=== PATIENT | male | born 1950 | race Caucasian/White ===

== ENCOUNTER 2022-11-23 08:00 | Outpatient (CLI) | payer MEDICARE ==
[2022-11-23 17:48] LABS: BASOPHILS % (AUTO) 0.5 %; EOSINOPHILS # (AUTO) 0.2 10^3/uL (0.0-0.7); EOSINOPHILS % (AUTO) 3.9 %; HGB - HEMOGLOBIN 14.1 g/dL (14.0-18.0); LYMPHOCYTES # (AUTO) 1.4 10^3/uL (1.5-3.5); LYMPHOCYTES % (AUTO) 23.3 %; MEAN CORPUSCULAR HEMOGLOBIN 30.4 pg (27.0-31.0); MEAN CORPUSCULAR VOLUME 94.8 fL (80.0-94.0); MEAN PLATELET VOLUME 11.2 fL (7.4-11.4); MONOCYTES # (AUTO) 0.6 10^3/uL (0.0-1.0); MONOCYTES % (AUTO) 10.6 %; NEUTROPHILS # (AUTO) 3.6 10^3/uL (1.5-6.6); NEUTROPHILS % (AUTO) 61.4 %; PLT - PLATELET COUNT 175 10^3/uL (130-450); RED BLOOD COUNT 4.64 10^6/uL (4.70-6.10); RED CELL DISTRIBUTION WIDTH 12.6 % (12.0-15.0); WHITE BLOOD COUNT 5.8 x10^3/uL (4.8-10.8)
[2022-11-23 18:29] LABS: ALBUMIN 4.2 g/dL (3.2-5.5); ALBUMIN/GLOBULIN RATIO 1.4 (1.0-2.2); BILIRUBIN,TOTAL 0.8 mg/dL (0.2-1.0); CALCIUM 9.3 mg/dL (8.5-10.3); CREATININE 0.6 mg/dL (0.6-1.2); POTASSIUM 4.2 mmol/L (3.5-5.0); TOTAL PROTEIN 7.3 g/dL (6.7-8.2)
== END 2022-11-23 23:59 | disposition home or self-care (01) ==
LOC: LAB.N 08:00
PROVIDERS: ATTEND Nurse Practitioner
DX: R22.43 Localized swelling, mass and lump, lower limb, bilateral (principal)
CPT/HCPCS: 36415; 80053; 83880; 85025

== ENCOUNTER 2023-01-25 11:30 | Outpatient (CLI) | payer MEDICARE ==
[2023-01-25 17:46] LABS: CALCIUM 9.1 mg/dL (8.5-10.3); CREATININE 0.7 mg/dL (0.6-1.2)
[2023-01-25 18:12] LABS: BASOPHILS % (AUTO) 0.4 %; EOSINOPHILS # (AUTO) 0.3 10^3/uL (0.0-0.7); EOSINOPHILS % (AUTO) 3.7 %; HCT - HEMATOCRIT 39.8 % (42.0-52.0); HGB - HEMOGLOBIN 13.4 g/dL (14.0-18.0); LYMPHOCYTES # (AUTO) 1.5 10^3/uL (1.5-3.5); LYMPHOCYTES % (AUTO) 20.8 %; MEAN CORPUSCULAR HGB CONC 33.7 g/dL (32.0-36.0); MEAN CORPUSCULAR VOLUME 92.1 fL (80.0-94.0); MEAN PLATELET VOLUME 11.8 fL (7.4-11.4); MONOCYTES # (AUTO) 0.7 10^3/uL (0.0-1.0); MONOCYTES % (AUTO) 10.5 %; NEUTROPHILS # (AUTO) 4.5 10^3/uL (1.5-6.6); NEUTROPHILS % (AUTO) 64.5 %; PLT - PLATELET COUNT 160 10^3/uL (130-450); RED BLOOD COUNT 4.32 10^6/uL (4.70-6.10); RED CELL DISTRIBUTION WIDTH 12.6 % (12.0-15.0)
== END 2023-01-25 11:45 | disposition home or self-care (01) ==
LOC: LAB.N 11:30
PROVIDERS: ATTEND Physician Assistant
DX: R22.43 Localized swelling, mass and lump, lower limb, bilateral (principal)
CPT/HCPCS: 36415; 80048; 83880; 85025

== ENCOUNTER 2023-01-26 13:54 | Outpatient (CLI) | payer MEDICARE ==
--- NOTE | 2023-01-26 14:46 | XRAY Report ---
PROCEDURE: Chest 2 View X-Ray INDICATIONS: LOCALIZED SWELLING ON FEET,BILATERAL TECHNIQUE: 2 views of the chest were acquired. COMPARISON: None. FINDINGS: Surgical changes and devices: None. Lungs and pleura: Diffuse interstitial prominence. Mild central vascular congestion. No focal consol idation. No substantial pleural effusion. No pneumothorax. Mediastinum: Mediastinal contours appear within normal limits. Heart size is mildly enlarged. Bones and chest wall: No suspicious bony lesions. Overlying soft tissues appear unremarkable. IMPRESSION: Mild cardiomegaly with findings suggestive of early pulmonary edema/CHF. A concurrent infectious or i nflammatory process not excluded if clinically appropriate. No focal consolidation seen. Reviewed by: Teddy Otoole MD on 01/26/2023 2:44 PM PDT Approved by: Teddy Otoole MD on 01/26/2023 2:44 PM PDT Station ID: [id number]
== END 2023-01-26 13:55 | disposition home or self-care (01) ==
LOC: DI 13:54
PROVIDERS: ATTEND Physician Assistant
DX: R22.43 Localized swelling, mass and lump, lower limb, bilateral (principal); I51.7 Cardiomegaly

== ENCOUNTER 2023-02-12 12:09 | Outpatient (CLI) | payer MEDICARE ==
[2023-02-12 12:27] LABS: BASOPHILS % (AUTO) 0.5 %; EOSINOPHILS # (AUTO) 0.1 10^3/uL (0.0-0.7); EOSINOPHILS % (AUTO) 1.8 %; HCT - HEMATOCRIT 41.3 % (42.0-52.0); LYMPHOCYTES # (AUTO) 1.5 10^3/uL (1.5-3.5); LYMPHOCYTES % (AUTO) 19.2 %; MEAN CORPUSCULAR HEMOGLOBIN 30.8 pg (27.0-31.0); MEAN CORPUSCULAR HGB CONC 33.9 g/dL (32.0-36.0); MEAN PLATELET VOLUME 10.7 fL (7.4-11.4); MONOCYTES # (AUTO) 0.7 10^3/uL (0.0-1.0); MONOCYTES % (AUTO) 9.1 %; NEUTROPHILS # (AUTO) 5.3 10^3/uL (1.5-6.6); NEUTROPHILS % (AUTO) 69.1 %; PLT - PLATELET COUNT 165 10^3/uL (130-450); RED BLOOD COUNT 4.54 10^6/uL (4.70-6.10); RED CELL DISTRIBUTION WIDTH 12.5 % (12.0-15.0); WHITE BLOOD COUNT 7.7 x10^3/uL (4.8-10.8)
[2023-02-12 12:47] LABS: ALBUMIN/GLOBULIN RATIO 1.3 (1.0-2.2); ALKALINE PHOSPHATASE 37 IU/L (42-121); ALT ALANINE AMINOTRANSFERASE 21 IU/L (10-60); AST ASPARTATE AMINOTRANSFERASE 17 IU/L (10-42); BILIRUBIN,TOTAL 0.8 mg/dL (0.2-1.0); BUN - BLOOD UREA NITROGEN 15 mg/dL (6-20); CARBON DIOXIDE - CO2 25 mmol/L (21-32); CHLORIDE 108 mmol/L (101-111); CHOL/HDL RATIO 2.9 (<5.0); CHOLESTEROL 133 mg/dL; CREATININE 0.8 mg/dL (0.6-1.2); GFR - MDRD 96 (>89); GLUCOSE 103 mg/dL (70-100); HDL CHOLESTEROL 46 mg/dL; LDL CHOLESTEROL,CALCULATED 69 mg/dL; LDL/HDL RATIO 1.5 (<3.6); POTASSIUM 3.9 mmol/L (3.5-5.0); SODIUM 138 mmol/L (135-145); TRIGLYCERIDES 90 mg/dL; VLDL CHOLESTEROL 18 mg/dL
[2023-02-12 12:57] LABS: THYROID STIMULATING HORMONE 3.71 uIU/mL (0.34-5.60)
== END 2023-02-12 12:10 | disposition home or self-care (01) ==
LOC: LAB 12:09
PROVIDERS: ATTEND Physician Assistant
DX: R06.09 Other forms of dyspnea (principal); I25.10 Atherosclerotic heart disease of native coronary artery without angina pectoris; N40.1 Benign prostatic hyperplasia with lower urinary tract symptoms; E03.9 Hypothyroidism, unspecified
CPT/HCPCS: 36415; 80053; 80061; 83721; 84153; 84443; 85025

== ENCOUNTER 2023-04-06 08:43 | Outpatient (CLI) | payer MEDICARE ==
--- NOTE | 2023-04-06 09:43 | Sleep Patient Instructions ---
Sleep Center Visit Summary - Patient Visit Information Reason for Visit: Initial consult for PAP therapy - Patient Instructions Additional Instructions: You will continue with CPAP therapy with pressure set at 17-20 cmH2O. A supply prescription will be updated with a transfer to new CPAP supply company. We encourage you to continue to try to lose weight. Please follow up with the sleep care office in 1 year. - Clinic Information Contact: [facility] [address] [place] [id number] [email or web address] T: [phone]
--- NOTE | 2023-04-06 09:51 | SLEEP CARE CONSULTATION ---
Information from patient questionnaire entered by Geraldine Heredia. I have reviewed and concur with the information entered by Geraldine Heredia. This document represents the service I personally performed and the decisions made by me, Leonor Francisco ARNP. History of Present Illness Service Date and Time: 04/06/2023 0843 Reason for Visit: New patient, sleep apnea on CPAP therapy Chief Complaint: reports: Excessive daytime sleepiness, Fatigue, Other (all of above) Date of Onset: 2 years Usual bedtime: 11 PM Time it takes to fall asleep: 20 minutes Snores at night: Yes Observed to quit breathing while asleep: Yes Sleeps alone due to snoring: No Number of times waking at night: 2 Reasons for waking at night: reports: Bathroom Toss, Turn, or Twitch while sleeping: Yes Recalls having dreams: No Usually gets out of bed at: 6-7 AM Feels refreshed in the morning: No Morning headache: No Sleepy or fatigued during the day: Yes Ever fallen asleep while driving: No Takes day naps: Yes Dreams during day naps: No Prior sleep studies: Yes Year and Where: [facility] Additional HPI information: LEIGHTON CROCKETT was previously diagnosed to have severe, AHI 48.2, obstructive sleep apnea-hypopnea syndrome as seen in sleep study dated 04/03/2019 through [facility] in [facility] and comes in today to establish care for CPAP therapy. - Parasomnia Symptoms Ever been unable to move upon waking from sleep: No Walks in sleep: No Talks in sleep: No Ever acted out dreams in sleep: No Ever felt weak in the knees when startled or emotional: No Bothered by creepy, crawly, restless sensations in legs: No Problems with memory or concentration: No CPAP Compliance Data - Data Reviewed with Patient Average duration of nightly device use: 5 hours 11 mins Compliance rate %: 76.7 (90/90 days used) Current pressure setting (cmH2O): 17-20 Humidity settin Heated hose setting: off Average residual AHI: 3.2 Average large leak: 0 secs Compliance data discussion: He has a Dreamstation 2 that was a replacement with the recall by [email or web address]. Setup for original machine was 04/16/2019. He is using a full face mask, F20 Airtouch. He has not been getting supplies. Subjective Patient concerns: reports: air blowing in eyes, mask leak noise, dry mouth, nose, throat. denies: aerophagia, mask discomfort, condensation in mask/hose, nasal congestion, epistaxis Observed to snore while using device: No Current pressure setting perceived as: too high On therapy, patient: reports: sleeping better, awakening more refreshed, being more awake and alert during the day, more rested overall. denies: drowsiness while driving Initial [place] Sleepiness Scale score: 16 (04/06/2023) Past Medical History Past Medical History: reports: Congestive Heart Failure, Hypothyroidism Social History The patient's occupation is a RETIRED. Patient is and lives in . Have you smoked in the past 12 months: No Alcohol use: No Caffeine use: Yes Caffeine amount and frequency: 1-2 cups coffee daily Family History Family history of sleep disordered breathing: No Allergies and Home Medications Known drug allergies: No Drug allergies reviewed: Yes Home medication list reviewed: Yes (see updated list in EMR) Review of Systems Weight gain over past 5 years: 60 Cardiovascular: denies: high blood pressure Respiratory: reports: sputum production Gastrointestinal: denies: heartburn Neurological: denies: headaches Psychiatric: denies: anxiety, depression Ear/Nose/Throat: reports: injury to nose (twice) Endocrine: reports: thyroid disease Immunologic: reports: sneezing, rash Physical Exam Vital signs obtained and entered by: GERALDINE Davila MA Blood Pressure: 126/74 (LEFT ARM) Cuff size: long Heart Rate: 62 O2 Saturation: 96 Height: 6 ft Weight: 312 lb 9.6 oz Body Mass Index: 42.4 BMI Classification: Morbidly Obese Neck circumference: 18.75 Heart: regular rate and rhythm Lungs: clear bilaterally Impression and Plan 1. Obstructive Sleep Apnea-Hypopnea Syndrome, severe, with good treatment compliance and good apnea control. On CPAP therapy, the patient has better sleep quality and is more rested overall. Patient states he wears the mask every night but the pressure seems too high and will wake him up with leaking noises. He states he may not change the mask cushion as often as he should. I advised him to change the mask cushion out monthly to get the best seal. He states he is never been fitted to the mask and is not sure that it is fitting properly. He also would like to have a different mask if possible but needs a full face because he cannot breathe through one side of his nose.I fitted him to an Clau view, medium cushion, full face mask and he found it comfortable. I also advised that he try a [employer]-com adaptor that can reduce the feeling of the higher pressure but still give him optimal pressure for apnea control. He is in need of a local CPAP supply company. I will have my prevention coordinator inform of DME options. A DWO prescription will then be made. Patient advised to contact this office if further supply problems. Patient's apnea severity and rationale for treatment to reduce apnea, improve sleep quality and reduce cardiovascular and cerebrovascular events was reviewed. I also reviewed the benefit of consistent device use of CPAP for cardiac disease (CHF). 2. Obesity, unspecified. Currently patients BMI is 42.4. Obesity increases the risk of apnea, CPAP pressure requirements and overall health risks especially cardiovascular and diabetes. Thus patient is advised to lose weight. * Continue auto CPAP pressure at 17-20 cmH2O * [employer] * Update supply prescription * Notify me if snoring with mask or feeling that the pressure is too much or too little * Attempt to lose weight * Call this office if any problems using CPAP * Return for follow up in 1 year, or sooner if concerns arise Mask provided: Yes Counseling Topics: Weight loss health impact Prescriptions: Device supplies Follow up with Sleep Care in: 1 year Visit Type: In Office Time Spent with Patient (minutes): 44 Provider Statement: I spent 100% of the Face to Face Visit with the patient with greater than 50% spent counseling the patient and coordination of care.
[2023-04-06 09:53] VITALS: BP 126/74
== END 2023-04-06 08:44 | disposition home or self-care (01) ==
LOC: SC 08:43
PROVIDERS: ATTEND Nurse Practitioner Family
DX: G47.33 Obstructive sleep apnea (adult) (pediatric) (principal); E66.01 Morbid (severe) obesity due to excess calories; Z68.41 Body mass index [BMI] 40.0-44.9, adult
CPT/HCPCS: 99203; G0463; 99212

== ENCOUNTER 2023-07-01 08:00 | Outpatient (CLI) | payer MEDICARE | END 2023-07-01 23:59 | disposition home or self-care (01) | LOC: LAB.WCP 08:00 | PROVIDERS: ATTEND Physician Assistant | DX: I48.0 Paroxysmal atrial fibrillation (principal); Z79.01 Long term (current) use of anticoagulants ==

== ENCOUNTER 2023-07-04 08:00 | Outpatient (CLI) | payer MEDICARE | END 2023-07-04 23:59 | disposition home or self-care (01) | LOC: LAB.WCP 08:00 | PROVIDERS: ATTEND Physician Assistant | DX: Z79.01 Long term (current) use of anticoagulants (principal); I48.0 Paroxysmal atrial fibrillation ==

== ENCOUNTER 2023-07-11 08:00 | Outpatient (CLI) | payer MEDICARE | END 2023-07-11 08:01 | disposition home or self-care (01) | LOC: LAB.N 08:00 | PROVIDERS: ATTEND Physician Assistant | DX: Z79.01 Long term (current) use of anticoagulants (principal); I48.0 Paroxysmal atrial fibrillation ==

== ENCOUNTER 2023-07-20 08:00 | Outpatient (CLI) | payer MEDICARE | END 2023-07-20 23:59 | disposition home or self-care (01) | LOC: LAB.WCP 08:00 | PROVIDERS: ATTEND Physician Assistant | DX: Z79.01 Long term (current) use of anticoagulants (principal); I48.0 Paroxysmal atrial fibrillation ==

== ENCOUNTER 2023-08-03 08:00 | Outpatient (CLI) | payer MEDICARE | END 2023-08-03 23:59 | disposition home or self-care (01) | LOC: LAB.WCP 08:00 | PROVIDERS: ATTEND Physician Assistant | DX: Z79.01 Long term (current) use of anticoagulants (principal); I48.0 Paroxysmal atrial fibrillation ==

== ENCOUNTER 2023-08-17 08:00 | Outpatient (CLI) | payer MEDICARE | END 2023-08-17 23:59 | disposition home or self-care (01) | LOC: LAB.N 08:00 | PROVIDERS: ATTEND Physician Assistant | DX: Z79.01 Long term (current) use of anticoagulants (principal); I48.0 Paroxysmal atrial fibrillation ==

== ENCOUNTER → 2023-09-14 | Outpatient (CLI) | payer MEDICARE | LOC: LAB.WCP 08:00 | PROVIDERS: ATTEND Physician Assistant | DX: I48.0 Paroxysmal atrial fibrillation (principal); Z79.01 Long term (current) use of anticoagulants ==

== ENCOUNTER 2023-10-19 08:00 | Outpatient (CLI) | payer MEDICARE | END 2023-10-19 08:01 | disposition home or self-care (01) | LOC: LAB.WCP 08:00 | PROVIDERS: ATTEND Physician Assistant | DX: I48.0 Paroxysmal atrial fibrillation (principal); Z79.01 Long term (current) use of anticoagulants ==

== ENCOUNTER → 2023-11-02 | Outpatient (CLI) | payer MEDICARE | LOC: LAB.N 08:00 | PROVIDERS: ATTEND Physician Assistant | DX: I48.0 Paroxysmal atrial fibrillation (principal); Z79.01 Long term (current) use of anticoagulants ==

== ENCOUNTER → 2023-11-16 | Outpatient (CLI) | payer MEDICARE | LOC: LAB.N 08:00 | PROVIDERS: ATTEND Physician Assistant | DX: I48.0 Paroxysmal atrial fibrillation (principal); Z79.01 Long term (current) use of anticoagulants ==

== ENCOUNTER 2023-12-10 10:01 | Outpatient (CLI) | payer MEDICARE ==
[2023-12-10 12:04] LABS: BASOPHILS % (AUTO) 0.6 %; EOSINOPHILS # (AUTO) 0.2 10^3/uL (0.0-0.7); EOSINOPHILS % (AUTO) 4.2 %; HCT - HEMATOCRIT 40.4 % (42.0-52.0); HGB - HEMOGLOBIN 13.5 g/dL (14.0-18.0); LYMPHOCYTES # (AUTO) 1.6 10^3/uL (1.5-3.5); LYMPHOCYTES % (AUTO) 29.8 %; MEAN CORPUSCULAR HEMOGLOBIN 30.5 pg (27.0-31.0); MEAN CORPUSCULAR HGB CONC 33.4 g/dL (32.0-36.0); MEAN CORPUSCULAR VOLUME 91.2 fL (80.0-94.0); MEAN PLATELET VOLUME 11.2 fL (7.4-11.4); MONOCYTES # (AUTO) 0.5 10^3/uL (0.0-1.0); MONOCYTES % (AUTO) 10.3 %; NEUTROPHILS # (AUTO) 2.9 10^3/uL (1.5-6.6); NEUTROPHILS % (AUTO) 54.9 %; PLT - PLATELET COUNT 153 10^3/uL (130-450); RED BLOOD COUNT 4.43 10^6/uL (4.70-6.10); RED CELL DISTRIBUTION WIDTH 13.2 % (12.0-15.0); WHITE BLOOD COUNT 5.2 x10^3/uL (4.8-10.8)
[2023-12-10 12:18] LABS: ALBUMIN 4.1 g/dL (3.2-5.5); ALBUMIN/GLOBULIN RATIO 1.5 (1.0-2.2); ALKALINE PHOSPHATASE 37 IU/L (42-121); ALT ALANINE AMINOTRANSFERASE 15 IU/L (10-60); AST ASPARTATE AMINOTRANSFERASE 14 IU/L (10-42); BILIRUBIN,TOTAL 0.5 mg/dL (0.2-1.0); BUN - BLOOD UREA NITROGEN 20 mg/dL (6-20); CALCIUM 9.3 mg/dL (8.5-10.3); CARBON DIOXIDE - CO2 26 mmol/L (21-32); CHLORIDE 108 mmol/L (101-111); CHOLESTEROL 130 mg/dL; CREATININE 0.8 mg/dL (0.6-1.3); GFR - MDRD 95 (>89); GLUCOSE 107 mg/dL (74-104); HDL CHOLESTEROL 44 mg/dL; LDL CHOLESTEROL,CALCULATED 60 mg/dL; LDL/HDL RATIO 1.4 (<3.6); POTASSIUM 3.9 mmol/L (3.5-4.5); SODIUM 137 mmol/L (135-145); TOTAL PROTEIN 6.8 g/dL (6.4-8.9); TRIGLYCERIDES 132 mg/dL (48-352); VLDL CHOLESTEROL 26 mg/dL
[2023-12-10 12:34] LABS: THYROID STIMULATING HORMONE 5.87 uIU/mL (0.34-5.60)
== END 2023-12-10 10:02 | disposition home or self-care (01) ==
LOC: LAB.N 10:01
PROVIDERS: ATTEND Physician Assistant
DX: I48.0 Paroxysmal atrial fibrillation (principal); I25.10 Atherosclerotic heart disease of native coronary artery without angina pectoris; Z12.5 Encounter for screening for malignant neoplasm of prostate; E03.9 Hypothyroidism, unspecified
CPT/HCPCS: 36415; 80053; 80061; 84439; 84443; 85025; G0103; 83721; 84153

== ENCOUNTER 2023-12-28 08:00 | Outpatient (CLI) | payer MEDICARE | END 2023-12-28 08:01 | disposition home or self-care (01) | LOC: LAB.WCP 08:00 | PROVIDERS: ATTEND Physician Assistant | DX: Z79.01 Long term (current) use of anticoagulants (principal); I48.0 Paroxysmal atrial fibrillation ==

== ENCOUNTER → 2024-01-25 | Outpatient (CLI) | payer MEDICARE | LOC: LAB.WCP 08:00 | PROVIDERS: ATTEND Physician Assistant | DX: Z79.01 Long term (current) use of anticoagulants (principal); I48.0 Paroxysmal atrial fibrillation ==

== ENCOUNTER 2024-03-03 08:00 | Outpatient (CLI) | payer MEDICARE | END 2024-03-03 23:59 | disposition home or self-care (01) | LOC: LAB.WCP 08:00 | PROVIDERS: ATTEND Physician Assistant | DX: I48.0 Paroxysmal atrial fibrillation (principal); Z79.01 Long term (current) use of anticoagulants ==

== ENCOUNTER 2024-04-04 08:00 | Outpatient (CLI) | payer MEDICARE | END 2024-04-04 23:59 | disposition home or self-care (01) | LOC: LAB.WCP 08:00 | PROVIDERS: ATTEND Internal Medicine | DX: I48.0 Paroxysmal atrial fibrillation (principal); Z79.01 Long term (current) use of anticoagulants ==

== ENCOUNTER 2024-04-17 13:00 | Outpatient (CLI) | payer MEDICARE ==
--- NOTE | 2024-04-17 13:43 | Sleep Patient Instructions ---
Sleep Center Visit Summary - Patient Visit Information Reason for Visit: Annual follow-up - Patient Instructions Additional Instructions: You will continue with CPAP therapy with pressure set at 17-20 cmH2O. A supply prescription will be updated with your DME. We encourage you to continue to try to lose weight. Please follow up with the sleep care office in 1 year. - Clinic Information Contact: [facility] [address] [place] [address] [email or web address] T: [phone]
--- NOTE | 2024-04-17 13:47 | SLEEP CARE CONSULTATION ---
Information from patient questionnaire entered by Geraldine Heredia. I have reviewed and concur with the information entered by Geraldine Heredia. This document represents the service I personally performed and the decisions made by , Leonor Francisco ARNP. History of Present Illness Service Date and Time: 04/17/2024 1300 Previous diagnosis: Severe, Obstructive Sleep Apnea-Hypopnea Syndrome AHI: 48.2 (on 04/03/2019) Reason for follow up: annual (LAST SEEN 03/2023) Equipment type: CPAP ([employer] Dreamstation 2) Equipment obtained from: Other ([facility]; getting supplies) Mask style: Full face Backup mask available: Yes Last cushion change: 3 weeks Prior sleep studies: Yes Year and Where: [facility] additional information: LEIGHTON CROCKETT was diagnosed to have severe, AHI 48.2, obstructive sleep apnea- hypopnea syndrome and returned today for CPAP therapy annual follow-up. Sleep Study - Results Prior sleep studies: Yes Year and Where: [facility] CPAP Compliance Data - Data Reviewed with Patient Average duration of nightly device use: 7 HRS 43 MINS 49 SECS Compliance rate %: 100 (10/20/23-04/16/24; 180/180 days used) Current pressure setting (cmH2O): 17-20 Average residual AHI: 2.7 Central apnea: 0.7 Obstructive apnea: 0.9 Hypopnea: 1.1 Average large leak: 0 secs Subjective Patient concerns: reports: dry mouth, nose, throat (dry mouth). denies: aerophagia, mask discomfort, air blowing in eyes, mask leak noise, condensation in mask/hose, nasal congestion, epistaxis Observed to snore while using device: No Current pressure setting perceived as: comfortable On therapy, patient: reports: sleeping better, awakening more refreshed, being more awake and alert during the day, more rested overall. denies: drowsiness while driving Initial [place] Sleepiness Scale score: 16 (04/06/2023) Current [place] Sleepiness Scale score: 6 (04/17/24) Allergies and Home Medications Known drug allergies: No Drug allergies reviewed: Yes Home medication list reviewed: Yes (no changes) Allergy and home medication list: Allergies No Known Drug Allergies Allergy (Verified 04/17/24 13:01) Review of Systems Review of systems same as previous: No (FAINTING) Physical Exam Vital signs obtained and entered by: GERALDINE Davila MA Blood Pressure: 134/79 (RIGHT ARM) Cuff size: long Heart Rate: 36 O2 Saturation: 96 Height: 6 ft Weight: 325 lb 12.8 oz Body Mass Index: 44.1 BMI Classification: Morbidly Obese Impression and Plan 1. Obstructive Sleep Apnea-Hypopnea Syndrome, severe, with good treatment compliance and good apnea control. On CPAP therapy, the patient has better sleep quality and is more rested overall. He has significant improvement of his sleep apnea and is satisfied with current CPAP therapy. He does have a very dry mouth and states he has been trying Biotene which helps transiently. He is also increased his humidity all the way up with no improvement of his dry mouth. I suggested he try XyliMelts to see if that will help reduce mouth dryness. He voiced understanding. Patient's apnea severity and rationale for treatment to reduce apnea, improve sleep quality and reduce cardiovascular and cerebrovascular events was reviewed. I also reviewed the benefit of consistent device use of CPAP for cardiac disease (CHF). 2. Obesity, unspecified. Currently patients BMI is 44.1. Obesity increases the risk of apnea, CPAP pressure requirements and overall health risks especially cardiovascular and diabetes. Thus patient is advised to lose weight. 3. Bradycardia. He had a low heart rate of 36 in the office today. He has a history of CHF and is on Carvedilol. He is to follow up with [place] operator. * Continue auto CPAP pressure at 17-20 cmH2O * Follow up with [place] operator for low heart rate * Update supply prescription * Notify me if snoring with mask or feeling that the pressure is too much or too little * Attempt to lose weight * Call this office if any problems using CPAP * Return for follow up in 12 months, or sooner if concerns arise Counseling Topics: Spare mask, Weight loss health impact Prescriptions: Device supplies Follow up with Sleep Care in: 1 year Visit Type: In Office Time Spent with Patient (minutes): 23 Provider Statement: I spent 100% of the Face to Face Visit with the patient with greater than 50% spent counseling the patient and coordination of care.
[2024-04-17 14:10] VITALS: BP 134/79; O2SAT 96
== END 2024-04-17 13:01 | disposition home or self-care (01) ==
LOC: SC 13:00
PROVIDERS: ATTEND Nurse Practitioner Family
DX: G47.33 Obstructive sleep apnea (adult) (pediatric) (principal); E66.01 Morbid (severe) obesity due to excess calories; Z68.41 Body mass index [BMI] 40.0-44.9, adult; R00.1 Bradycardia, unspecified; Z79.899 Other long term (current) drug therapy
CPT/HCPCS: 99213; G0463; 99212

== ENCOUNTER 2024-06-04 13:49 | Emergency (ER) | payer MEDICARE ==
[2024-06-04] MEDS ORDERED: iohexoL-300 100 ML VIAL ONE (14:21)
--- NOTE | 2024-06-04 14:56 | ED Physician Documentation ---
History of Present Illness - Stated complaint Stated Complaint: LT EYE VISION LOSS - Chief complaint Chief Complaint: Neuro - Additonal information Additional information: 73-year-old male with history of CT, high cholesterol, obesity, macular degeneration of both eyes presents emergency department as he was sent here from the retina specialist. Patient had an appointment with his retina specialist where he informed him that he had some peripheral vision loss of the left peripheral vision. They told him that he had an ocular stroke at the retina specialist and they wanted him to come to the emergency department for reevaluation and imaging. He has no neurological deficits no weakness in one- sided body no recent fevers or chills no nausea or vomiting.He is anticoagulated on Coumadin and says that he goes to Coumadin clinic every 3 weeks and has not missed any recent doses. He unfortunately has not been able to afford Eliquis which is the original medication that he was supposed to be on. PD PAST MEDICAL HISTORY - Past Medical History Past Medical History: Yes Cardiovascular: High cholesterol, Coronary artery disease, CT Respiratory: Sleep apnea, CPAP use Endocrine/Autoimmune: HyPOthyroidism GI: None : Benign prostate hypertrophy Psych: None Musculoskeletal: Osteoarthritis, Chronic back pain Derm: Eczema - Past Surgical History Past Surgical History: Yes General: Cholecystectomy Ortho: Carpal Tunnel surgery - Present Medications Home Medications: Ambulatory Orders Medication Instructions Recorded Confirmed Aspirin [Vazalore] 81 mg PO DAILY 04/06/23 06/04/24 Furosemide [Lasix] 20 mg PO DAILY 04/06/23 06/04/24 Levothyroxine [Synthroid] 88 mcg PO DAILY 04/06/23 06/04/24 Rosuvastatin Calcium [Crestor] 40 mg PO DAILY PM 04/06/23 06/04/24 Vit A/Vit C/Vit E/Zinc/Copper PO DAILY 04/06/23 04/17/24 [Preservision Areds Softgel] carvediloL [Coreg] 12.5 mg PO BID 04/06/23 06/04/24 Apixaban [Eliquis] 5 mg PO BID 30 Days #60 tab 06/04/24 Rosuvastatin Calcium 20 mg PO DAILY 30 Days #30 tab 06/04/24 - Allergies Allergies/Adverse Reactions: Allergies Allergy/AdvReac Type Severity Reaction Status Date / Time No Known Drug Allergies Allergy Verified 06/04/24 13:57 - Social History Does the pt smoke?: No Smoking Status: Former smoker Does the pt drink ETOH?: No Does the pt have substance abuse?: No - Immunizations Immunizations are current?: Yes - POLST Patient has POLST: No PD ED PE NORMAL - Vitals Vital signs reviewed: Yes - General General: Alert and oriented X 3, No acute distress, Well developed/nourished - HEENT HEENT: Atraumatic, PERRL, EOMI, Moist mucous membranes - Neck Neck: No bony TTP, C-Spine cleared by NEXUS criteria - Cardiac Cardiac: RRR, No murmur - Respiratory Respiratory: No respiratory distress, Clear bilaterally - Extremities Extremities: No edema - Neuro Neuro: Alert and oriented X 3, deli associate 2-12 intact, No motor deficit, No sensory deficit, Normal speech, Other (loss of left peripheral vision) Eye Opening: Spontaneous Motor: Obeys Commands Verbal: Oriented GCS Score: 15 - Psych Psych: Normal mood, Normal affect Results - Vitals Vitals: Vital Signs - 24 hr 06/04/24 06/04/24 06/04/24 13:57 16:06 18:00 Temperature 36.3 C L Heart Rate 104 H 64 63 Respiratory 18 20 20 Rate Blood Pressure 147/90 H 140/72 H 134/95 H O2 Saturation 97 98 97 06/04/24 20:00 Temperature 36.5 C Heart Rate 65 Respiratory 16 Rate Blood Pressure 124/66 O2 Saturation 98 Oxygen O2 Source Room air - EKG (time done) 1423 EKG releavant findings:: EKG personally interpreted by author of this note. Relevant findings are: Rate: Rate (enter#) (87) Rhythm: Atrial fibrillation [place]: Normal Ischemia: Other (Borderline T wave abnormalities) Computer interpretation: Agree with computer - Labs Labs: Laboratory Tests 06/04/24 06/04/24 06/04/24 15:21 15:21 15:35 WBC 6.6 RBC 4.66 L Hgb 14.6 Hct 43.2 MCV 92.7 MCH 31.3 H MCHC 33.8 RDW 12.9 Plt Count 164 MPV 10.6 Neut # (Auto) 4.0 Lymph # (Auto) 1.6 Mcpherson # (Auto) 0.7 Eos # (Auto) 0.3 Baso # (Auto) 0.0 Absolute Nucleated RBC 0.00 Nucleated RBC % 0.0 PT 17.9 H INR 1.7 H Sodium 139 Potassium 4.4 Chloride 106 Carbon Dioxide 30 Anion Gap 3.0 L BUN 16 Creatinine 0.7 Estimated GFR (MDRD) 111 Glucose 91 Calcium 9.3 Magnesium 1.7 Total Bilirubin 0.4 AST 16 ALT 19 Alkaline Phosphatase 44 Total Protein 6.7 Albumin 4.2 Globulin 2.5 Albumin/Globulin Ratio 1.7 Lipase 33 - Rads (name of study) Head CT wo Relevant Findings:: Final report received, EMP independent interpretation of test, Other (No acute intracranial hemorrhages or abnormalities.) CTA head and neck Relevant Findings:: Final report received, EMP independent interpretation of test, Other (No acute intracranial process, left vertebral artery is occluded but uncertain chronicity patent right vertebral artery less than 50% bilateral carotid bifurcation) Brain MRI without Relevant Findings:: Final report received, EMP independent interpretation of test, Other (No acute intracranial process, moderate atrophy and chronic microvascular ischemic changes, loss of left vertebral artery flow, void consistent with occlusion) PD Medical Decision Making - ED course ED course: 73-year-old male presents emergency department for 2 months of left peripheral vision loss. He was recently told that he had an ocular stroke with retinal s pecialist today. Labs are complete for further evaluation no leukocytosis no anemia no electrolyte abnormalities his INR is subtherapeutic 1.7. He says that he goes to Coumadin clinic every 3 weeks and has not taken today's dose because he normally takes it in the evening and says that he is normally therapeutic. Head CT was complete for further evaluation no acute intracranial hemorrhages or abnormalities visualized. Angio head and neck was also complete and did reveal a left vertebral artery occlusion uncertain chronicity, right vertebral artery is patent. MRI was recommended for further evaluation so brain MRI without was complete in the emergency department and revealed moderate atrophy and chronic microvascular ischemic changes with loss of left vertebral artery flow. I reached out to [facility] neurology stroke team for further evaluation of how to manage this patient's symptoms that are less likely chronic but unsure. I spoke with Dr. 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 She spoke with her attending and they are recommending outpatient follow-up for this and transitioning off of Coumadin and starting patient on apixaban. Patient says that in the past they have not been able to afford apixaban which is why they have always been on Coumadin. A prescription of apixaban was sent to his preferred pharmacy and they were told to research different ways of how to find this for cheaper including looking into [facility] or other options. Prescription of Eliquis was sent to his preferred pharmacy. [facility] neurology is can be following up with patient outpatient and they will be reaching out to him and the patient and his were also given their contact phone number as well. They were also told to increase the Rova statin to 20 mg daily instead of 10 mg daily. At this point in time patient is safe for discharge return precautions given all questions answered. Departure - Departure Disposition: 01 Home, Self Care Clinical Impression: Occlusion of vertebral artery Instructions: Apixaban oral tablets Prescriptions: Apixaban [Eliquis] 5 mg PO BID 30 Days #60 tab Rosuvastatin Calcium 20 mg PO DAILY 30 Days #30 tab Comments: Thank you for trusting us with your care. We have completed labs as well as imaging for further evaluation of your left peripheral vision loss. Your INR today was 1.7 making is subtherapeutic. We completed an angio head and neck CT which showed left vertebral artery occlusion. From there we pursued an MRI which confirmed this finding. I reach out to [facility] neurology who is recommending outpatient follow-up. We are also recommending increasing your rosuvastatin to 20 mg daily up from 10 mg daily. They are also strongly recommending you going off of Coumadin and starting Eliquis also known as apixaban. They will be reaching out to you within the next week or 2 for outpatient follow-up if you do not hear from them I would give them a phone call their phone number is [phone]. Please follow-up with your primary care provider and ask for a lipid panel, TSH panel, A1c and let them know about todays ER visit and also let your log clerk know about today's ER visit and today's ER findings. Please come back to the ER if you are having any worsening symptoms or any changes in your symptoms MRI brain without: Final Report PT NAME: LEIGHTON CROCKETT MR#: [id number] REG ER/ED AGE: 73 CI DT/TM: 06/04/2408/17/1712 PCP: JOÃO Olivo : 1950 ATT: SEX: M ORD: [facility] WET SUIT GLUER EXAM: [id number] MRI/BRWO ([id number]) PROCEDURE: Brain WO INDICATIONS: L. peripheral field vision loss TECHNIQUE: Noncontrast axial T1 spin echo, axial T2 fast spin echo, sagittal and axial FLAIR, coronal T2 fast spin echo, axial gradient echo, axial diffusion and ADC through the brain. COMPARISON: CT head/CTA head and neck 06/04/2024 FINDINGS: Image quality: Excellent. CSF Spaces: Basal cisterns are patent. No extra-axial fluid collections. Ventricles are normal in size and shape. Brain: No intracranial masses or hemorrhage. Lehman/white matter interface is normal. Brainstem appears normal. Diffusion-weighted images demonstrate no acute ischemic insult. No chronic ischemic insults. There is loss of left vertebral artery flow-void corresponding to vertebral artery occlusion identified on CTA. It is of uncertain chronicity. Skull and face: Calvarium has normal marrow signal. Orbits appear normal. Sinuses: Sinuses and mastoids are clear. IMPRESSION: 1. No acute intracranial process. 2. Moderate atrophy and chronic microvascular ischemic changes. 3. Loss of left vertebral artery flow void consistent with occlusion identified on CT exam of 06/04/2024. It is indeterminate chronicity. Forms: PCP List Discharge Date/Time: 06/04/24 20:04
[2024-06-04 15:30] LABS: BASOPHILS % (AUTO) 0.6 %; EOSINOPHILS # (AUTO) 0.3 10^3/uL (0.0-0.7); EOSINOPHILS % (AUTO) 4.1 %; HCT - HEMATOCRIT 43.2 % (42.0-52.0); HGB - HEMOGLOBIN 14.6 g/dL (14.0-18.0); LYMPHOCYTES # (AUTO) 1.6 10^3/uL (1.5-3.5); LYMPHOCYTES % (AUTO) 23.8 %; MEAN CORPUSCULAR HEMOGLOBIN 31.3 pg (27.0-31.0); MEAN CORPUSCULAR HGB CONC 33.8 g/dL (32.0-36.0); MEAN CORPUSCULAR VOLUME 92.7 fL (80.0-94.0); MEAN PLATELET VOLUME 10.6 fL (7.4-11.4); MONOCYTES # (AUTO) 0.7 10^3/uL (0.0-1.0); MONOCYTES % (AUTO) 10.5 %; NEUTROPHILS % (AUTO) 60.8 %; PLT - PLATELET COUNT 164 10^3/uL (130-450); RED BLOOD COUNT 4.66 10^6/uL (4.70-6.10); RED CELL DISTRIBUTION WIDTH 12.9 % (12.0-15.0); WHITE BLOOD COUNT 6.6 x10^3/uL (4.8-10.8)
[2024-06-04 15:40] LABS: ALBUMIN 4.2 g/dL (3.2-5.5); ALBUMIN/GLOBULIN RATIO 1.7 (1.0-2.2); BILIRUBIN,TOTAL 0.4 mg/dL (0.2-1.0); CALCIUM 9.3 mg/dL (8.5-10.3); CREATININE 0.7 mg/dL (0.6-1.3); MAGNESIUM 1.7 mg/dL (1.7-2.3); POTASSIUM 4.4 mmol/L (3.5-4.5); TOTAL PROTEIN 6.7 g/dL (6.4-8.9)
[2024-06-04 15:49] LABS: INR 1.7 (0.8-1.2); PT - PROTHROMBIN TIME 17.9 secs (9.9-12.6)
[2024-06-04] MEDS: iohexoL-300 100 ML VIAL IVP ONE (16:32)
--- NOTE | 2024-06-04 16:42 | CT Report ---
PROCEDURE: Head WO INDICATIONS: left peripheral vision loss TECHNIQUE: Noncontrast 4.5 mm thick angled axial sections acquired from the foramen magnum to the vertex. For r adiation dose reduction, the following was used: automated exposure control, adjustment of mA and/or kV according to patient size. COMPARISON: None. FINDINGS: Image quality: Excellent. CSF spaces: Basal cisterns are patent. No extra-axial fluid collections. Ventricles are normal in size and shape. Brain: No midline shift. No intracranial masses or hemorrhage. Lehman-white matter interface is norm al. Intracranial carotid calcifications. Age-related volume loss and mild, age-appropriate small vess el ischemic change. Skull and face: Calvarium and visualized facial bones are intact, without suspicious lesions. Sinuses: Visualized sinuses and mastoids are clear. IMPRESSION: No acute intracranial pathology. Reviewed by: Sae Yang MD on 06/04/2024 4:41 PM PDT Approved by: Sae Yang MD on 06/04/2024 4:41 PM PDT Station ID: [id number]
--- NOTE | 2024-06-04 16:49 | CT Report ---
PROCEDURE: Angio Head/Neck INDICATIONS: left peripheral vision loss TECHNIQUE: After the administration of intravenous contrast, 1 mm thick sections acquired from the aortic arch t hrough the [place] of [place]. 3-dimensional gleetqi-yurzsxzqy-wxwqsltnvm (MIP) and/or volume renderin g reformats were acquired of the central intracranial vasculature and neck separately. For radiation dose reduction, the following was used: automated exposure control, adjustment of mA and/or kV acco rding to patient size. CONTRAST: 100ml [id number] COMPARISON: CT head from the same date. FINDINGS: Image quality: Diagnostic. HEAD CT: CSF Spaces: Basal cisterns are patent. No extra-axial fluid collections. Ventricles are normal in size and shape. Brain: No acute intracranial process. Skull and face: Calvarium and visualized facial bones appear i ntact, without suspicious lesions. Sinuses: Visualized sinuses and mastoids are clear. HEAD CT ANGIOGRAPHY: Anterior circulation: Intracranial internal carotid arteries are normal in size and flow. The flow within the paired anterior cerebral arteries is normal and symmetric. The flow within the middle cer ebral arteries is normal and symmetric. The anterior communicating artery is seen. No aneurysms are seen. Posterior circulation: Left vertebral artery is occluded. Right vertebral artery is widely patent, gi ving rise to a normal caliber basilar artery. Flow within the posterior cerebral arteries is normal a nd symmetric. No aneurysms are seen. NECK CT ANGIOGRAPHY: Carotid system: The great vessels demonstrate a conventional anatomy as they arise from the aortic a rch. The origins of the common carotid arteries appear patent. The common carotid arteries demonstr ate normal caliber and courses. The bifurcation regions are both widely patent. Mild to moderate les s than 50% bilateral stenoses of the carotid bifurcation/proximal internal carotid arteries bilateral ly. This is present to complex heart and soft plaque bilaterally. Posterior circulation: Left vertebr al artery is occluded. Right vertebral artery is normal caliber without stenosis. It gives rise to a normal caliber basilar artery.. Soft tissues: Visualized neck soft tissues demonstrate no suspicious abnormalities. Bones: No suspicious bony lesions. Visualized cervical spine appears normally aligned. IMPRESSION: 1. Accompanying CT head demonstrates no acute intracranial process. 2. Left vertebral artery is occluded, but uncertain chronicity. Right vertebral artery is patent givi ng rise to a normal basilar artery. 3. Otherwise no stenosis, aneurysm, occlusion, or focal filling defect in the intracranial circulatio n. 4.. Less than 50% bilateral carotid bifurcation/proximal internal carotid artery stenosis. Comment: MRI may potentially be helpful The estimate of stenosis included in the report of the imaging study was calculated using the NASCET method Reviewed by: Sae Yang MD on 06/04/2024 4:47 PM PDT Approved by: Sae Yang MD on 06/04/2024 4:47 PM PDT Station ID: [id number]
--- NOTE | 2024-06-04 18:48 | MRI Report ---
PROCEDURE: Brain WO INDICATIONS: L. peripheral field vision loss TECHNIQUE: Noncontrast axial T1 spin echo, axial T2 fast spin echo, sagittal and axial FLAIR, coronal T2 fast sp in echo, axial gradient echo, axial diffusion and ADC through the brain. COMPARISON: CT head/CTA head and neck 06/04/2024 FINDINGS: Image quality: Excellent. CSF Spaces: Basal cisterns are patent. No extra-axial fluid collections. Ventricles are normal in size and shape. Brain: No intracranial masses or hemorrhage. Lehman/white matter interface is normal. Brainstem appe ars normal. Diffusion-weighted images demonstrate no acute ischemic insult. No chronic ischemic ins ults. There is loss of left vertebral artery flow-void corresponding to vertebral artery occlusion id entified on CTA. It is of uncertain chronicity. Skull and face: Calvarium has normal marrow signal. Orbits appear normal. Sinuses: Sinuses and mastoids are clear. IMPRESSION: 1. No acute intracranial process. 2. Moderate atrophy and chronic microvascular ischemic changes. 3. 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 It is indeterminate chronicity. Reviewed by: Constance Reveles MD on 06/04/2024 6:47 PM PDT Approved by: Constance Reveles MD on 06/04/2024 6:47 PM PDT Station ID: [id number]
[2024-06-04 20:15] VITALS: BP 124/66; O2SAT 98
== END 2024-06-04 20:04 | disposition home or self-care (01) ==
LOC: ED 13:49
DX: I65.02 Occlusion and stenosis of left vertebral artery (principal); E78.00 Pure hypercholesterolemia, unspecified; I25.10 Atherosclerotic heart disease of native coronary artery without angina pectoris; E03.9 Hypothyroidism, unspecified; I25.2 Old myocardial infarction; Z79.01 Long term (current) use of anticoagulants; Z79.82 Long term (current) use of aspirin; Z79.899 Other long term (current) drug therapy
CPT/HCPCS: 36415; 70450; 70496; 70498; 70551; 80053; 83690; 83735; 85025; 85610; 93005; 99284; Q9967

== ENCOUNTER 2024-06-12 10:13 | Outpatient (CLI) | payer MEDICARE ==
[2024-06-12 12:13] LABS: CHOL/HDL RATIO 2.8 (<5.0); CHOLESTEROL 124 mg/dL; HDL CHOLESTEROL 44 mg/dL; LDL CHOLESTEROL,CALCULATED 50 mg/dL; LDL/HDL RATIO 1.1 (<3.6); TRIGLYCERIDES 151 mg/dL; VLDL CHOLESTEROL 30 mg/dL
[2024-06-12 12:26] LABS: THYROID STIMULATING HORMONE 4.37 uIU/mL (0.34-5.60)
[2024-06-12 12:56] LABS: ESTIMATED AVERAGE GLUCOSE 108 mg/dL (70-100); HEMOGLOBIN A1c% 5.4 % (4.27-6.07)
== END 2024-06-12 10:14 | disposition home or self-care (01) ==
LOC: LAB.N 10:13
PROVIDERS: ATTEND Physician Assistant
DX: I25.10 Atherosclerotic heart disease of native coronary artery without angina pectoris (principal); R73.01 Impaired fasting glucose; R94.6 Abnormal results of thyroid function studies
CPT/HCPCS: 36415; 80061; 83036; 83721; 84443